=== PATIENT | female | born 1995 | race Caucasian/White ===

== ENCOUNTER 2017-01-07 22:35 | Emergency (ER) | payer OTHER ==
--- NOTE | ~2017-01-07 | ER ---
PATIENT'S NAME: NEETA VEGALA Howard [facility] AGE: 21 Y [address] ROOM: [place] [address] LOCATION: [facility] ADMIT DATE: 01/07/2017 ER/Outpatient Report DISCHARGE DATE: 01/07/2017 FAMILY PHYSICIAN: Ministerio Wallace MD ATTENDING PHYSICIAN: Ryan Faustin Time of Arrival: 2236 hours. Time of Evaluation: 2236 hours. CHIEF COMPLAINT: Abdominal pain. HISTORY OF PRESENT ILLNESS: The patient states for the last 3 days, she has had generalized lower abdominal pain off and on. Reports she has been nauseated, has not vomited. Had a normal bowel movement this evening. Has not had fever or chills. Denies any pain or frequency with urination. She reports she is 9 weeks . She did get diagnosed at the [facility]. States her last menstrual period was sometime in October. She denies having any vaginal discharge or bleeding vaginally. She is scheduled to see Dr. Wallace for her care on January 31, 2017. ALLERGIES: NO KNOWN ALLERGIES. MEDICATIONS: vitamins. PAST MEDICAL HISTORY: Bipolar, anxiety, and depression. PAST SURGERIES: Tonsillectomy. She is a 1, para 0. SOCIAL HISTORY: Smokes 1 pack every 3 days. Denies use of drugs or alcohol since she got . ROS: All negative other than those mentioned in the HPI. PHYSICAL EXAMINATION: VITAL SIGNS: She weighed 68.5 kg; blood pressure is 116/57; pulse is 78; respirations 16; temperature of 98, tympanic; O2 saturation is 97% on room air. GENERAL: She is awake, alert, and oriented x4. PATIENT'S NAME: MOIRA VEGA [facility] AGE: 21 Y [address] ROOM: [place] [address] LOCATION: [facility] ADMIT DATE: 01/07/2017 ER/Outpatient Report DISCHARGE DATE: 01/07/2017 FAMILY PHYSICIAN: Ministerio Wallace MD ATTENDING PHYSICIAN: Ryan Faustin SKIN: [facility], warm, and dry. LUNGS: Lung sounds are clear throughout. HEART: Regular rate and rhythm. ABDOMEN: Soft and nondistended. Bowel sounds are present. LABORATORY DATA AND X-RAYS: Lab work was completed. CBC is within normal limits. Chem panel is within normal limits. Her serum hCG is 83,747. UA was completed. It shows 100 leukocytes. Ultrasound was completed by Dr. Faustin. Heart rate is 167. The patient measures 9 weeks and 4 days single intrauterine . IMPRESSION: 1. Abdominal discomfort. 2. Intrauterine 9 weeks and 4 days. PLAN: Home, rest, fluids. Tylenol as needed for discomfort. Continue her vitamins. If her symptoms persist or worsen, she should follow up with Dr. Wallace, her primary provider. She verbalized understanding. ALBERTO LYONS APRN FOR DO ALEXANDER NATH/kurt /[id number] d: 01/08/17 0101 t: 01/17/17 0522, OUTPATIENT REPORT
[2017-01-07 22:59] LABS: BASOPHIL % 0.5 %; EOSINOPHIL # 0.2 K/uL (0.0-0.5); EOSINOPHIL % 2.3 %; HEMATOCRIT 38.2 % (33.0-46.0); HEMOGLOBIN 13.1 g/dL (11.0-15.0); IMMATURE GRANULOCYTE % 0.4 %; LYMPHOCYTE # 2.4 K/uL (0.8-4.0); LYMPHOCYTE % 29.2 %; MCH 28.1 pg (27.0-34.0); MCHC 34.3 gm/dL (32.0-36.5); MCV 81.8 fl (83.0-98.0); MONOCYTE # 0.5 K/uL (0.0-1.0); MONOCYTE % 6.4 %; MPV 9.7 fl (9.4-12.4); NEUTROPHIL % 61.2 %; NRBC % 0 /100WBC (0-0.00); PLATELET COUNT 238 K/uL (150-450); RBC 4.67 M/uL (3.50-5.00); RDW-CV 12.8 % (11.9-14.6); WBC 8.2 K/uL (4.0-11.0)
[2017-01-07 23:17] LABS: ALBUMIN 3.5 gm/dL (3.5-5.0); ALK PHOS 58 IU/L (33-138); ALT 16 IU/L (12-78); BLOOD UREA NITROGEN 8 mg/dL (6-24); CALCIUM 8.8 mg/dL (8.5-10.5); CHLORIDE 110 mMol/L (96-110); CO2 21 mMol/L (22-32); CREATININE 0.6 mg/dL (0.5-1.1); ESTIMATED GFR (MDRD EQUATION) > 60; TOTAL BILIRUBIN 0.2 mg/dL (0.0-1.5); TOTAL PROTEIN 6.9 g/dL (6.0-8.4)
[2017-01-07 23:25] LABS: BILIRUBIN URINE NEGATIVE (NEGATIVE); BLOOD URINE NEGATIVE /UL (NEGATIVE); GLUCOSE URINE NEGATIVE (NEGATIVE); KETONE URINE NEGATIVE (NEGATIVE); LEUKOCYTES URINE 100 /UL (NEGATIVE); NITRITE URINE NEGATIVE (NEGATIVE); PH URINE 6.5 (4.0-8.0); PROTEIN URINE NEGATIVE (NEGATIVE); SPEC GRAVITY URINE 1.015 (1.003-1.035); UROBILINOGEN URINE NORMAL (NORMAL)
[2017-01-07 23:27] LABS: COLOR URINE YELLOW (YELLOW); TURBIDITY URINE CLEAR (CLEAR)
[2017-01-07 23:28] LABS: ANION GAP 10.7 (10.0-19.0); AST 17 IU/L (10-40); POTASSIUM 3.7 mMol/L (3.7-5.1); SODIUM 138 mMol/L (135-145)
[2017-01-07 23:39] LABS: BACTERIA URINE MODERATE (NEGATIVE); RBC URINE NEGATIVE #/HPF (NEGATIVE)
== END 2017-01-07 23:42 | disposition disaster alternative care site (69) ==
LOC: GMED 22:35
PROVIDERS: Nurse Practitioner Family
DX: O99.89 Other specified diseases and conditions complicating pregnancy, childbirth and the puerperium (principal); R10.84 Generalized abdominal pain; O99.331 Smoking (tobacco) complicating pregnancy, first trimester; F17.210 Nicotine dependence, cigarettes, uncomplicated; O99.341 Other mental disorders complicating pregnancy, first trimester; F31.9 Bipolar disorder, unspecified; Z3A.09 9 weeks gestation of pregnancy

== ENCOUNTER 2017-02-12 23:37 | Emergency (ER) | payer OTHER ==
--- NOTE | ~2017-02-12 | ER ---
[facility] 21 Y [address] ROOM: [place] [address] LOCATION: [facility] ADMIT DATE: 02/12/2017 ER/Outpatient Report DISCHARGE DATE: 02/13/2017 FAMILY PHYSICIAN: Ministerio Wallace MD ATTENDING PHYSICIAN: Yuniel Rojas Admission date and time documented in the medical record. I saw the patient at 2355 hours. CHIEF COMPLAINT: Vaginal bleeding. HISTORY OF PRESENT ILLNESS: The patient is a 21-year-old female who comes in having vaginal bleeding about 20 minutes prior to admission to the emergency room. She is approximately 15 weeks' gestation by dates. Questionable whether she has cramping. She told me that she was cramping, told the nurse she was not cramping. States that she was not wearing a pad, but she had blood all over. No abdominal pain. No chest pain. No shortness of breath. No lightheadedness or dizziness. Her blood type is O positive. She is to not have any intercourse tonight. No recent coughs, colds, flus, fever, chills, or sweats. No rigors. HOME MEDICATIONS: vitamins. ALLERGIES: NONE. SOCIAL HISTORY: The patient smokes a pack of cigarettes every 3 days. Does do drugs and alcohol, but none since . SIGNIFICANT PAST MEDICAL HISTORY: Bipolar disorder with anxiety, depression, tobacco abuse, alcohol and drug abuse, and primigravida. OPERATIONS: Tonsillectomy. REVIEW OF SYSTEMS: All systems reviewed by me are negative with the exception of those discussed in the history of present illness. PHYSICAL EXAMINATION: VITAL SIGNS: Temperature 97.5 tympanic, pulse 86, respirations 16, blood PATIENT'S NAME: NEETA VEGALA Howard [facility] AGE: 21 Y [address] ROOM: [place] [address] LOCATION: [facility] ADMIT DATE: 02/12/2017 ER/Outpatient Report DISCHARGE DATE: 02/13/2017 FAMILY PHYSICIAN: Ministerio Wallace MD ATTENDING PHYSICIAN: Yuniel Rojas pressure 131/60, and O2 saturation on room air is 98%. HEENT: Negative. LUNGS: Clear. HEART: Regular. ABDOMEN: Soft, nondistended, nontender. LABORATORY DATA AND DIAGNOSTIC DATA: I could not get heart tones, so did an ultrasound that showed heart tones of 147, 16 weeks' gestation by size. Placenta was intact, no placenta previa. Cervix is closed. Did have fluid in the vaginal canal. See Radiology dictated transcribed report. Urinalysis showed 2-5 whites, 20-50 reds, 0-2 epithelial cells, rare bacteria, negative nitrites. IMPRESSION: Primigravida, intrauterine 16 weeks' gestation, good heart tones. The patient is having vaginal bleeding. Appears to have fluid in the vaginal canal, but no clear source of the vaginal bleeding. Placenta showed no previa or abruptio. Cervix is closed and long. PLAN: The patient dismissed home. Observation. Activity as tolerated. No strenuous activity. No sexual intercourse. Pad count. Fluids and diet as tolerated. Follow up with personal physician in 1 to 2 days. YUNIEL ROJAS MD SDS/modl /[id number] d: 02/13/177 t: 02/13/171821, OUTPATIENT REPORT
[2017-02-12 23:59] LABS: BILIRUBIN URINE NEGATIVE (NEGATIVE); BLOOD URINE 250 /UL (NEGATIVE); COLOR URINE YELLOW (YELLOW); GLUCOSE URINE NEGATIVE (NEGATIVE); KETONE URINE NEGATIVE (NEGATIVE); LEUKOCYTES URINE 25 /UL (NEGATIVE); NITRITE URINE NEGATIVE (NEGATIVE); PROTEIN URINE NEGATIVE (NEGATIVE); SPEC GRAVITY URINE 1.025 (1.003-1.035); TURBIDITY URINE CLEAR (CLEAR); UROBILINOGEN URINE 1 mg/dL (NORMAL)
[2017-02-13 00:07] LABS: BACTERIA URINE RARE (NEGATIVE); EPITHELIAL URINE 0-2 #/HPF (NEGATIVE); RBC URINE 20-50 #/HPF (NEGATIVE)
== END 2017-02-13 01:45 | disposition disaster alternative care site (69) ==
LOC: GMED 23:37
PROVIDERS: Emergency Medicine
DX: O46.92 Antepartum hemorrhage, unspecified, second trimester (principal); O99.332 Smoking (tobacco) complicating pregnancy, second trimester; O99.342 Other mental disorders complicating pregnancy, second trimester; F17.210 Nicotine dependence, cigarettes, uncomplicated; F31.9 Bipolar disorder, unspecified; Z3A.16 16 weeks gestation of pregnancy

== ENCOUNTER 2017-02-20 10:49 | Emergency (ER) | payer OTHER, MEDICAID ==
--- NOTE | ~2017-02-20 | ER ---
PATIENT'S NAME: SILVIA [facility] AGE: 22 Y [address] ROOM: [place] [address] LOCATION: [facility] ADMIT DATE: 02/20/2017 ER/Outpatient Report DISCHARGE DATE: 02/20/2017 FAMILY PHYSICIAN: Ministerio Wallace MD ATTENDING PHYSICIAN: Vianca Faustin Time of arrival: 1029 hours. Time of evaluation: 1100 hours CHIEF COMPLAINT: Shortness of breath. HISTORY OF PRESENT ILLNESS: The patient is a 22-year-old female, who presents to the emergency department with chief complaint shortness of breath. The patient reports this started last night. The patient reports she has had a nonproductive cough, some subjective fevers, as well as, chills. It all started 1 day prior. She is having some posttussive emesis. She is also approximately 16 weeks' . Denies any diarrhea or constipation. PAST MEDICAL HISTORY: 1. Bipolar. 2. Anxiety. 3. Depression. PAST SURGICAL HISTORY: Tonsillectomy. SOCIAL HISTORY: The patient smokes a quarter pack a day. Denies any illicit drug use. No alcohol use. ALLERGIES: NO KNOWN DRUG ALLERGIES. MEDICATIONS: vitamin. REVIEW OF SYSTEMS: All systems are reviewed by myself and are negative with the exception of those discussed in HPI and past medical history. PHYSICAL EXAMINATION: VITAL SIGNS: Blood pressure 110/65, pulse 94, respiratory rate 22, temperature 98.4, oxygen saturation 91% on room air. PATIENT'S NAME: [facility] AGE: 22 Y [address] ROOM: [place] [address] LOCATION: [facility] ADMIT DATE: 02/20/2017 ER/Outpatient Report DISCHARGE DATE: 02/20/2017 FAMILY PHYSICIAN: Ministerio Wallace MD ATTENDING PHYSICIAN: Vianca Faustin GENERAL: The patient is a 22-year-old female, who appears stated age, in no acute distress at this time. HEENT: Head: Normocephalic and atraumatic. Pupils are equal, round, and reactive to light and accommodation. Extraocular motions are intact. Nares are patent bilaterally. TMs are clear. Oropharynx is clear. NECK: Supple. There is no nuchal rigidity. CARDIOVASCULAR: Regular rate and rhythm. No murmurs, rubs, or gallops. LUNGS: Clear to auscultation bilaterally. No wheezes, rales, or rhonchi. ABDOMEN: Soft, nontender, and nondistended. No rebound, rigidity, or guarding. MUSCULOSKELETAL: The patient moves all 4 extremities. SKIN: Warm and dry. There is no rashes or lesions noted. LABORATORY DATA AND X-RAYS: EKG is obtained shows sinus rhythm with a rate of 95, normal axis and normal interval. There is no ST elevation. There is some ST depression noted in III and aVF. There is no significant change from 04/08/2016; however, two-view chest x-ray does show some increased interstitial opacification. D-dimer 0.51. CBC is unremarkable, except for a platelet of 130. CMP is unremarkable except for potassium 3.2 and CO2 21. LFTs are normal. IMPRESSION: 1. Community-acquired pneumonia. 2. . 3. Initial visit. EMERGENCY DEPARTMENT COURSE: The patient brought back to the examination room. Seen and evaluated by myself. Laboratory analysis and imaging are obtained as described above. The patient is given DuoNeb breathing treatment. The breathing treatment does result in significant improvement in the patient's symptoms. She is 96% on room air on recheck. I have discussed results with the patient. I will treat the patient with azithromycin as well as albuterol inhaler. I have asked the patient follows up with Dr. Wallace, her primary care doctor 1 to 2 days for re- evaluation. I have discussed return to care instructions including worsening symptoms or other concerns to return to the emergency department as soon as possible. The patient is agreeable without further questions at this time. DISPOSITION: The patient is discharged home in good condition. VIANCA FAUSTIN DO PATIENT'S NAME: MOIRA VEGA [facility] AGE: 22 Y [address] ROOM: [place], [place] [address] LOCATION: [facility] ADMIT DATE: 02/20/2017 ER/Outpatient Report DISCHARGE DATE: 02/20/2017 FAMILY PHYSICIAN: Ministerio Wallace MD ATTENDING PHYSICIAN: Vianca Faustin/modl /[id number] d: 02/20/17 1406 t: 02/21/17 1544, OUTPATIENT REPORT
[2017-02-20 11:53] LABS: BASOPHIL % 0.2 %; EOSINOPHIL # 0.1 K/uL (0.0-0.5); EOSINOPHIL % 1.4 %; HEMATOCRIT 41.3 % (33.0-46.0); IMMATURE GRANULOCYTE % 0.5 %; LYMPHOCYTE # 0.9 K/uL (0.8-4.0); LYMPHOCYTE % 10.4 %; MCH 28.5 pg (27.0-34.0); MCHC 33.9 gm/dL (32.0-36.5); MCV 84.1 fl (83.0-98.0); MONOCYTE # 0.4 K/uL (0.0-1.0); MONOCYTE % 4.6 %; MPV 10.7 fl (9.4-12.4); NEUTROPHIL # (ANC) 7.1 K/uL (1.8-7.8); NEUTROPHIL % 82.9 %; NRBC % 0 /100WBC (0-0.00); RBC 4.91 M/uL (3.50-5.00); RDW-CV 13.2 % (11.9-14.6); WBC 8.6 K/uL (4.0-11.0)
[2017-02-20 11:56] LABS: PLATELET COUNT 130 K/uL (150-450)
[2017-02-20 12:13] LABS: ALBUMIN 3.7 gm/dL (3.5-5.0); ALK PHOS 72 IU/L (33-138); ALT 15 IU/L (12-78); ANION GAP 13.2 (10.0-19.0); AST 13 IU/L (10-40); BLOOD UREA NITROGEN 3 mg/dL (6-24); CALCIUM 9.1 mg/dL (8.5-10.5); CHLORIDE 109 mMol/L (96-110); CO2 21 mMol/L (22-32); CREATININE 0.6 mg/dL (0.5-1.1); ESTIMATED GFR (MDRD EQUATION) > 60; POTASSIUM 3.2 mMol/L (3.7-5.1); SODIUM 140 mMol/L (135-145); TOTAL PROTEIN 7.8 g/dL (6.0-8.4)
[2017-02-20 12:14] LABS: TOTAL BILIRUBIN 0.6 mg/dL (0.0-1.5)
== END 2017-02-20 12:43 | disposition disaster alternative care site (69) ==
LOC: GMED 10:49
PROVIDERS: Emergency Medicine
DX: O99.512 Diseases of the respiratory system complicating pregnancy, second trimester (principal); J18.9 Pneumonia, unspecified organism; F32.9 Major depressive disorder, single episode, unspecified; F31.9 Bipolar disorder, unspecified; F41.9 Anxiety disorder, unspecified; F17.210 Nicotine dependence, cigarettes, uncomplicated; Z3A.16 16 weeks gestation of pregnancy; Z90.89 Acquired absence of other organs; Z79.899 Other long term (current) drug therapy

== ENCOUNTER → 2017-02-20 | Outpatient (CLI) | payer OTHER, MEDICAID | END | disposition disaster alternative care site (69) | LOC: GAMB 10:36 | DX: R06.9 Unspecified abnormalities of breathing (principal); R06.02 Shortness of breath; R05 Cough | CPT/HCPCS: A0422; A0425; A0429 ==